=== PATIENT | male | born 1990 | race Caucasian/White ===

== ENCOUNTER 2023-05-05 20:34 | Emergency (ER) | payer MEDICAID ==
[~2023-05-05] VITALS: Ht 154.9 cm; Wt 77.1 kg
[2023-05-05 21:06] VITALS: BP 125/71; PULSE 116; RESP 16; TEMP 100.8; O2SAT 98
[2023-05-05 22:17] LABS: FLU A ANTIGEN POSITIVE (NEGATIVE); FLU B ANTIGEN NEGATIVE (NEGATIVE)
[2023-05-05] MEDS ORDERED: ALBU0.0912 IH (23:15)
[2023-05-05] MEDS ORDERED: TAM75 PO (23:15)
[2023-05-05] MEDS ORDERED: ROBAC PO (23:15)
[2023-05-05] MEDS ORDERED: NAPR-54 PO (23:15)
[2023-05-05] MEDS ORDERED: KETOROLAC 30 MG/ML VIAL IM ONE (23:35)
[2023-05-06 00:08] VITALS: BP 119/67; PULSE 102; RESP 17; TEMP 98.3; O2SAT 97
== END 2023-05-06 00:08 | disposition home or self-care (01) ==
LOC: MED 20:34
DX: J10.1 Influenza due to other identified influenza virus with other respiratory manifestations (principal); Z20.822 Contact with and (suspected) exposure to COVID-19; Z79.899 Other long term (current) drug therapy
CPT/HCPCS: 87426; 87804; 96372; 99283; J1885